=== PATIENT | female | born 1970 | race African-American/Black ===

== ENCOUNTER 2025-05-24 12:03 | Inpatient (IN) | payer MEDICARE, MEDICAID ==
[~2025-05-24] VITALS: Ht 157.5 cm; Wt 85.0 kg
--- NOTE | 2025-05-24 12:24 | ECG ---
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
--- NOTE | 2025-05-24 13:14 | ED.PDOC ---
History of Present Illness HPI Comments This is a 54 year-old female, with a Hx of Sciatica, who presents to the ED with a chief complaint of general weakness with an inability to ambulate and cough as of x2 days ago. She states she fell several days ago by a mechanical fall. Patient presents with a large abrasion to her palm from previous fall. Patient states after the fall, she has had a difficulty with ambulation, and needs her to assist. Patient additionally reports a difficulty to eat or drink. Patient reports additional symptoms of cough, but otherwise denies further symptoms of head trauma, back pain, neck pain, N/V/D, fever, or chills. 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 History Family History Family History: Reviewed,noncontributory to illness, No family hx of Cancer, No family hx of DM, No family hx of Heart courtney, No family hx of HTN, No family hx ofKidney courtney, No family hx of Liver courtney, No family hx of Lung courtney, No family hx of Stroke Social History Smoker: Unknown Alcohol: Unknown Drugs: Unknown Lives In: Home Constitutional: reports: weakness, others (difficulty walking ); denies: chills, diaphoresis, fatigue, fever, malaise, sweats EENTM: denies: blurred vision, double vision, ear bleeding, ear discharge, ear drainage, ear pain, ear ringing, eye pain, eye redness, hearing loss, mouth pain, mouth swelling, nasal discharge, nose bleeding, nose congestion, nose pain, photophobia, tearing, throat pain, throat swelling, voice changes, others Respiratory: reports: cough; denies: hemoptysis, orthopnea, SOB at rest, shortness of breath, SOB with excertion, stridor, wheezing, others Cardiovascular: denies: chest pain, dizzy spells, diaphoresis, Dyspnea on exertion, edema, irregular heart beat, left arm pain, lightheadedness, palpitations, PND, syncope, others Gastrointestinal: denies: abdomen distended, abdominal pain, blood streaked bowels, constipated, diarrhea, dysphagia, difficulty swallowing, hematemesis, melena, nausea, poor appetite, poor fluid intake, rectal bleeding, rectal pain, vomiting, others Genitourinary: denies: abnormal vagina bleeding, burning, dyspareunia, dysuria, flank pain, frequency, hematuria, incontinence, pain, , vagina di scharge, urgency, others Neurological: denies: dizziness, fainting, headache, left sided numbness, left sided weakness, numbness, paresthesia, pre-existing deficit, right sided numbness, right sided weakness, seizure, speech problems, tingling, tremors, weakness, others Musculoskeletal: denies: back pain, gout, joint pain, joint swelling, muscle pain, muscle stiffness, neck pain, others Integumetry: denies: bruises, change in color, change in hair/nails, dryness, laceration, lesions, lumps, rash, wounds, others Allergic/Immunocompromised: denies: Difficulty Healing, Frequent Infections, Hives, Itching, others Hematologic/Lymphatic: denies: anemia, blood clots, easy bleeding, easy bruising, swollen glands, others Endocrine: denies: excessive hunger, excessive sweating, excessive thirst, excessive urination, flushing, intolerance to cold, intolerance to heat, unexplained weight gain, unexplained weight loss, others Psychiatric: denies: anxiety, bipolar disorder, depression, hopeless, panic disorder, schizophrenia, sleepless, suicidal, others All Other Systems: Reviewed and Negative Physical Exam General Appearance: No Apparent Distress, Normal, Other (Appears weak) HEENT: Normal ENT Inspection, Pharynx Normal, TMs Normal Neck: Full Range of Motion, Non-Tender, Normal, Normal Inspection Respiratory: Chest Non-Tender, Lungs Clear, No Accessory Muscle Use, No Respiratory Distress, Normal Breath Sounds Cardiovascular: No Edema, No JVD, No Murmur, No Gallop, Normal Peripheral Pulses, Regular Rate/Rhythm Breast Exam: Deferred Gastrointestinal: No Organomegaly, Non Tender, No Pulsatile Mass, Normal Bowel Sounds, Soft Genitalia: Deferred Pelvic: Deferred Rectal: Deferred Extremities: No calf tenderness, Normal capillary refill, Normal inspection, Normal range of motion, Non-tender, No pedal edema Musculoskeletal : Apperance: Normal Neurologic: Alert, top frame fitter II-XII nml as Tested, No Motor Deficits, Normal Affect, Normal Mood, No Sensory Deficits Cerebellar Function: Normal Reflexes: Normal Skin: Dry, Normal Color, Warm Lymphatic: No Adenopathy Was a procedure done? Was a procedure done?: No EKG EKG : Comments Rate of 82 sinus rhythm T-wave flattening in lead 3 V2 V3 V4 V5 V6 Differential Dx Considerations may include: UTI pneumonia, intracranial hemorrhage, stroke, dehydration, electrolyte abnormality X-Ray, Labs, Meds, VS Vital Signs Date Time Temp Pulse Resp B/P (MAP) Pulse Ox O2 Delivery O2 Flow Rate FiO2 05/24/25 16:41 98.3 73 18 117/75 (89) 100 98.3 05/24/25 16:31 71 7 100 Room Air* 0 21 05/24/25 14:00 98.0 78 18 86/54 (65) 97 98.0 05/24/25 12:15 82 05/24/25 12:06 98.1 92 18 137/92 96 98.1 Lab Test 05/24/25 14:47 05/24/25 13:47 Range/Units Troponin I High Sensitivity < 3 L 3 L </=34 ng/L White Blood Count 8.8 4.4-10.8 10^3/uL Red Blood Count 3.97 L 4.0-5.20 10^6/uL Hemoglobin 11.2 L 12.2-16.2 g/dL Hematocrit 33.6 L 36.0-46.0 % Mean Corpuscular Volume 84.6 80.0-100.0 fL Mean Corpuscular Hemoglobin 28.2 28.0-32.0 pg Mean Corpuscular Hemoglobin Concent 33.3 32.0-36.0 g/dL Red Cell Distribution Width 18.9 H 11.8-14.3 % Platelet Count 231 140-450 10^3/uL Mean Platelet Volume 7.5 6.9-10.8 fL Neutrophils (%) (Auto) 80.8 H 37.0-80.0 % Lymphocytes (%) (Auto) 11.4 10.0-50.0 % Monocytes (%) (Auto) 5.2 0.0-12.0 % Eosinophils (%) (Auto) 1.8 0.0-7.0 % Basophils (%) (Auto) 0.8 0.0-2.0 % Neutrophils # (Auto) 7.1 1.6-8.6 10 ^3/uL Lymphocytes # (Auto) 1.0 0.4-5.4 10 ^3/uL Monocytes # (Auto) 0.5 0-1.3 10 ^3/uL Eosinophils # (Auto) 0.2 0-0.8 10 ^3/uL Basophils # (Auto) 0.1 0-0.2 10 ^3/uL Nucleated Red Blood Cells 0.0 % Sodium Level 144 136-145 mmol/L Potassium Level 3.9 3.5-5.1 mmol/L Chloride Level 109 H 98-107 mmol/L Carbon Dioxide Level 26 20-31 mmol/L Anion Gap 9 5-15 Blood Urea Nitrogen 8 L 9-23 mg/dL Creatinine 0.79 0.550-1.02 mg/dL Glomerular Filtration Rate Calc 88 >90 mL/min BUN/Creatinine Ratio 10.1 10.0-20.0 Serum Glucose 88 74-106 mg/dL Calcium Level 9.2 8.7-10.4 mg/dL Total Bilirubin 0.5 0.2-1.0 mg/dL Aspartate Amino Transferase (AST) 20 13-40 U/L Alanine Aminotransferase (ALT) 14 7-40 U/L Alkaline Phosphatase 91 46-116 U/L B-Type Natriuretic Peptide 51.80 0-100 pg/mL Total Protein 6.4 5.7-8.2 g/dL Albumin 4.1 3.2-4.8 g/dL Current Medications Medications (Trade) Dose Ordered Sig/Saroj Route Start Time Stop Time Status Last Admin Sodium Chloride 500 ml @ 500 mls/hr Q1H ONCE IV 05/24/25 14:45 05/24/25 15:44 DC 05/24/25 15:[address] [address] Ph: [phone] DIAGNOSTIC IMAGING Diagnostic Imaging Report : [id number] Signed PATIENT: ONEIL SIMEON ACCT: [id number] UNIT: [id number] : 1970 LOC: ER ROOM / BED: / AGE / SEX: 54 / F ADM STATUS: REG ER SERVICE 1311 ORDERING PHYSICIAN: BERNABE ZAMBRANO MD PROCEDURE(s): CXR2 - CHEST TWO VIEWS ROUTINE REASON: Rule out pneumonia ORDER NUMBER(s): [id number], ACCESSION NUMBER(s): [id number] CHEST RADIOGRAPH Indication: Rule out pneumonia Technique: Frontal and lateral view of the chest was obtained Comparison: XR RIBS RT on DOS: 12/04/23, XY R RIB XRAY on DOS: 03/16/23 FINDINGS: Lines and Tubes: None Lungs: Mildly increased interstitial changes both lung hussein No consolidation Pleura: No effusion. No pneumothorax. Cardiomediastinal contours: Mild cardiomegaly Bones: Unremarkable IMPRESSION: 1. Mild cardiomegaly with mildly [place] [address] Ph: [phone] DIAGNOSTIC IMAGING Diagnostic Imaging Report : [id number] Signed PATIENT: ONEIL SIMEON ACCT: [id number] UNIT: [id number] : 1970 LOC: ER ROOM / BED: / AGE / SEX: 54 / F ADM STATUS: REG ER SERVICE 1314 ORDERING PHYSICIAN: BERNABE ZAMBRANO MD PROCEDURE(s): HWOCT - HEAD WITHOUT CONTRAST REASON: Rule out intracranial hemorrhage ORDER NUMBER(s): [id number], ACCESSION NUMBER(s): [id number] EXAM: CT HEAD WITHOUT CONTRAST INDICATION: Rule out intracranial hemorrhage TECHNIQUE: CT images of the head were obtained without administration of IV contrast. CT scans at this facility use dose modulation, iterative reconstruction, and/or weight based dosing when appropriate to reduce radiation dose to as low as reasonably achievable. COMPARISON: None FINDINGS: PARENCHYMA: No acute hemorrhage. There is no mass effect, midline shift, or herniation. There is preservation of the kline white differentiation. VENTRICLES: No hydrocephalus. EXTRA-AXIAL SPACES: No extra-axial fluid collections. OTHER: The bony structures are intact. Visualized portions of the paranasal sinuses and mastoid air cells are clear. IMPRESSION: 1. No CT evidence of an acute intracranial abnormality. 54-year-old female presents here with generalized weakness that she has had x2 days. She states she fell several days ago by a mechanical fall. She does have a large abrasion to her palm from previous fall. But there was no laceration does not require stitching. She states however the last few days she has been extremely weak difficulty with ambulation. She states she has not been able to eat and drink much. Patient reports positive cough. Denies any fever or chills. While in the ER nursing staff approached me multiple times stating patient's blood pressure is low at 88 systolic. At this time I have started IV fluids which has helped her blood pressure. CBC CMP, troponin chest x-ray has been ordered by myself which are all normal. CT scan of the brain has been done given her fall which is also unremarkable. At this time however given her low blood pressures I am concerned and hospitalist team has been contacted. There was no source of infection at this point. I am waiting on urine. However she denies any dysuria. Images Reviewed?: Images reviewed and evaluated by me Time of 1ST Reevaluation: 16:47 Reevaluation 1ST: Unchanged Patient Education/Counseling: Diagnosis, Treatment Family Education/Counseling: No Family Present SEPSIS Sepsis Screen Date sepsis recognized/suspect: May 24, 2025 Time Sepsis recognized/suspect: 1212 Recent Procedure: No On Antibiotic Therapy: No Respiratory Rate >20: No Heart Rate >90: No Temp<36 C (96.8 F) or >38.3 C: No SBP <90 or MAP <65 mmHG: No New Acute Mental Status Change: No Is the patient on CPAP, BIPAP,: No Physician Orders Urinalysis (05/24/25 13:11) Chest Two Views Routine (05/24/25 13:11) Head Without Contrast (05/24/25 13:14) Ls Spine Wo Contrast (05/24/25 16:40) Cervical Without Contrast (05/24/25 16:40) Vital Signs Date Time Temp Pulse Resp B/P (MAP) Pulse Ox O2 Delivery O2 Flow Rate FiO2 05/24/25 16:41 98.3 73 18 117/75 (89) 100 98.3 05/24/25 16:31 71 7 100 Room Air* 0 21 05/24/25 14:00 98.0 78 18 86/54 (65) 97 98.0 05/24/25 12:15 82 05/24/25 12:06 98.1 92 18 137/92 96 98.1 Laboratory Tests Test 05/24/25 13:47 White Blood Count 8.8 10^3/uL (4.4-10.8) Medications Medications Dose Ordered Sig/Saroj Route Start Time Stop Time Status Last Admin Dose Admin Sodium Chloride 500 ml @ 500 mls/hr Q1H ONCE IV 05/24/25 14:45 05/24/25 15:44 DC 05/24/25 15:15 Departure 1 Departure Time of Disposition: 16:03 Impression: Primary Impression: Generalized weakness Additional Impression: Low blood pressure Qualified Codes: I95.9 - Hypotension, unspecified Disposition: ADMITTED INPATIENT Condition: Fair Critical Care Note Critical Care Time?: No Stability Stability form required: No Heart Score Heart Score: Heart Score Response (Comments) Value History Slightly Suspicious 0 EKG N/A 0 Age 45-64 1 Risk Factors No known risk factors 0 Troponin N/A 0 Total 1 I personally scribed for BERNABE ZAMBRANO MD ([facility] on 05/24/25 at 14:28. Electronically submitted by Keira Alvarez ([employer]). I personally scribed for BERNABE ZAMBRANO MD ([facility]) on 05/24/25 at 14:29. Electronically submitted by Keira Alvarez ([employer]). I personally scribed for BERNABE ZAMBRANO MD ([email or web address]) on 05/24/25 at 16:03. Electronically submitted by Keira Alvarez ([employer]). I personally scribed for BERNABE ZAMBRANO MD ([email or web address]) on 05/24/25 at 16:15. Electronically submitted by Keira Alvarez ([employer]). BERNABE ZAMBRANO MD May 24, 2025 13:14
--- NOTE | 2025-05-24 13:48 | DVH ---
CHEST RADIOGRAPH Indication: Rule out pneumonia Technique: Frontal and lateral view of the chest was obtained Comparison: XR RIBS RT on DOS: 12/04/23, XY R RIB XRAY on DOS: 03/16/23 FINDINGS: Lines and Tubes: None Lungs: Mildly increased interstitial changes both lung hussein No consolidation Pleura: No effusion. No pneumothorax. Cardiomediastinal contours: Mild cardiomegaly Bones: Unremarkable IMPRESSION: 1. Mild cardiomegaly with mildly
[2025-05-24 14:01] LABS: Hematocrit 33.6 % (36.0-46.0); Hemoglobin 11.2 g/dL (12.2-16.2); Mean Corpuscular Hemoglobin 28.2 pg (28.0-32.0); Mean Corpuscular Volume 84.6 fL (80.0-100.0); Nucleated Red Blood Cells % 0.0 %
--- NOTE | 2025-05-24 14:06 | DVH ---
EXAM: CT HEAD WITHOUT CONTRAST INDICATION: Rule out intracranial hemorrhage TECHNIQUE: CT images of the head were obtained without administration of IV contrast. CT scans at [facility] use dose modulation, iterative reconstruction, and/or weight based dosing when appropriate to reduce radiation dose to as low as reasonably achievable. COMPARISON: None FINDINGS: PARENCHYMA: No acute hemorrhage. There is no mass effect, midline shift, or herniation. There is pres ervation of the kline white differentiation. VENTRICLES: No hydrocephalus. EXTRA-AXIAL SPACES: No extra-axial fluid collections. OTHER: The bony structures are intact. Visualized portions of the paranasal sinuses and mastoid air cells are clear. IMPRESSION: 1. No CT evidence of an acute intracranial abnormality.
[2025-05-24 14:18] LABS: Alanine Aminotransferase 14 U/L (7-40); Albumin 4.1 g/dL (3.2-4.8); Alkaline Phosphatase 91 U/L (46-116); Anion Gap 9 (5-15); BUN/Creatinine Ratio 10.1 (10.0-20.0); Bilirubin, Total 0.5 mg/dL (0.2-1.0); Blood Urea Nitrogen 8 mg/dL (9-23); Calcium 9.2 mg/dL (8.7-10.4); Carbon Dioxide 26 mmol/L (20-31); Chloride 109 mmol/L (98-107); Glucose 88 mg/dL (74-106); Potassium 3.9 mmol/L (3.5-5.1); Sodium 144 mmol/L (136-145); Total Protein 6.4 g/dL (5.7-8.2)
[2025-05-24] MEDS: SODIUM CHLORIDE 0.9% 500 ML IV ONE (15:15)
[2025-05-24 16:31] VITALS: PULSE 71; RESP 7; O2SAT 100
[2025-05-24] MEDS ORDERED: ONDANSETRON HCL 4 MG/2 ML VIAL IV PRN (16:45)
--- NOTE | 2025-05-24 16:45 | DVHHP2 ---
History of Present Illness Reason for Visit: Generalized weakness status post mechanical fall History of Present Illness Yoly Mcrae is a 54-year-old female with past medical history of CHF, ex la p for endometriosis, cholecystectomy, hysterectomy, and oophorectomy who presents to the ED with generalized weakness status post fall 4 days ago. Patient reports that she was walking out to her front yd and was over a"lip" when she tripped and fell landed on both her knees and her right hand. Upon examination her right hand has a healed abrasion as well as healing abrasions on her knees. Patient reports now that when she has to stand up or walk she needs assistance with someone holding her up as a cane that she had used before is not sufficient. Patient denies any head strike or loss of consciousness. Patient denies any recent travels, recent sick contacts, recent ingestion of spoiled food, chest pain, shortness of breath, fever, chills, lightheadedness, weakness, dizziness, abdominal pain, nausea vomiting, diarrhea, or urinary symptoms. Cardiovascular: CHF Past Surgical History: Cholecystectomy, Hysterectomy, Other (Ex lap for endometriosis and oophorectomy) Family History: Other (Mom with psych disorder. Dad with psych disorder and type 1 diabetes.) Smoke: No ALCOHOL: none Drugs: None Lives: with Family Domestic Violence: Neg Review of Systems Constitutional: Yes: Weakness Allergies: Coded Allergies: NO KNOWN ALLERGIES (Unverified , 05/24/25) Exam Vital Signs Vital Signs Date Time Temp Pulse Resp B/P (MAP) Pulse Ox O2 Delivery O2 Flow Rate FiO2 05/24/25 14:00 98.0 78 18 86/54 (65) 97 98.0 General Appearance: Alert, Oriented X3, Cooperative, No acute distress HEENT: Atraumatic, PERRLA, Mucous membr. moist/pink Respiratory: Normal air movement Cardiovascular: Regular rate, Normal S1, Normal S2 Abdominal: Normal bowel sounds, Soft Extremities: Normal pulses Neuro: Normal speech, Normal tone, Sensation intact Psych/Mental Status: Mental status NL, Mood NL Labs/Xrays Labs Test 05/24/25 14:47 05/24/25 13:47 Range/Units Troponin I High Sensitivity < 3 L </=34 ng/L White Blood Count 8.8 4.4-10.8 10^3/uL Red Blood Count 3.97 L 4.0-5.20 10^6/uL Hemoglobin 11.2 L 12.2-16.2 g/dL Hematocrit 33.6 L 36.0-46.0 % Mean Corpuscular Volume 84.6 80.0-100.0 fL Mean Corpuscular Hemoglobin 28.2 28.0-32.0 pg Mean Corpuscular Hemoglobin Concent 33.3 32.0-36.0 g/dL Red Cell Distribution Width 18.9 H 11.8-14.3 % Platelet Count 231 140-450 10^3/uL Mean Platelet Volume 7.5 6.9-10.8 fL Neutrophils (%) (Auto) 80.8 H 37.0-80.0 % Lymphocytes (%) (Auto) 11.4 10.0-50.0 % Monocytes (%) (Auto) 5.2 0.0-12.0 % Eosinophils (%) (Auto) 1.8 0.0-7.0 % Basophils (%) (Auto) 0.8 0.0-2.0 % Neutrophils # (Auto) 7.1 1.6-8.6 10 ^3/uL Lymphocytes # (Auto) 1.0 0.4-5.4 10 ^3/uL Monocytes # (Auto) 0.5 0-1.3 10 ^3/uL Eosinophils # (Auto) 0.2 0-0.8 10 ^3/uL Basophils # (Auto) 0.1 0-0.2 10 ^3/uL Nucleated Red Blood Cells 0.0 % Sodium Level 144 136-145 mmol/L Potassium Level 3.9 3.5-5.1 mmol/L Chloride Level 109 H 98-107 mmol/L Carbon Dioxide Level 26 20-31 mmol/L Anion Gap 9 5-15 Blood Urea Nitrogen 8 L 9-23 mg/dL Creatinine 0.79 0.550-1.02 mg/dL Glomerular Filtration Rate Calc 88 >90 mL/min BUN/Creatinine Ratio 10.1 10.0-20.0 Serum Glucose 88 74-106 mg/dL Calcium Level 9.2 8.7-10.4 mg/dL Total Bilirubin 0.5 0.2-1.0 mg/dL Aspartate Amino Transferase (AST) 20 13-40 U/L Alanine Aminotransferase (ALT) 14 7-40 U/L Alkaline Phosphatase 91 46-116 U/L B-Type Natriuretic Peptide 51.80 0-100 pg/mL Total Protein 6.4 5.7-8.2 g/dL Albumin 4.1 3.2-4.8 g/dL EXAM: CT HEAD WITHOUT CONTRAST INDICATION: Rule out intracranial hemorrhage TECHNIQUE: CT images of the head were obtained without administration of IV contrast. CT scans at this facility use dose modulation, iterative reconstruction, and/or weight based dosing when appropriate to reduce radiation dose to as low as reasonably achievable. COMPARISON: None FINDINGS: PARENCHYMA: No acute hemorrhage. There is no mass effect, midline shift, or herniation. There is preservation of the kline white differentiation. VENTRICLES: No hydrocephalus. EXTRA-AXIAL SPACES: No extra-axial fluid collections. OTHER: The bony structures are intact. Visualized portions of the paranasal sinuses and mastoid air cells are clear. IMPRESSION: 1. No CT evidence of an acute intracranial abnormality. CHEST RADIOGRAPH Indication: Rule out pneumonia Technique: Frontal and lateral view of the chest was obtained Comparison: XR RIBS RT on DOS: 12/04/23, XY R RIB XRAY on DOS: 03/16/23 FINDINGS: Lines and Tubes: None Lungs: Mildly increased interstitial changes both lung hussein No consolidation Pleura: No effusion. No pneumothorax. Cardiomediastinal contours: Mild cardiomegaly Bones: Unremarkable IMPRESSION: 1. Mild cardiomegaly with mildly SEPSIS Sepsis Screen Date sepsis recognized/suspect: May 24, 2025 Time Sepsis recognized/suspect: 2 Recent Procedure: No On Antibiotic Therapy: No Respiratory Rate >20: No Heart Rate >90: No Temp<36 C (96.8 F) or >38.3 C: No SBP <90 or MAP <65 mmHG: No New Acute Mental Status Change: No Is the patient on CPAP, BIPAP,: No Physician Orders Urinalysis (05/24/25 13:11) Chest Two Views Routine (05/24/25 13:11) Head Without Contrast (05/24/25 13:14) Ls Spine Wo Contrast (05/24/25 16:40) Cervical Without Contrast (05/24/25 16:40) Vital Signs Date Time Temp Pulse Resp B/P (MAP) Pulse Ox O2 Delivery O2 Flow Rate FiO2 05/24/25 14:00 98.0 78 18 86/54 (65) 97 98.0 05/24/25 12:15 82 05/24/25 12:06 98.1 92 18 137/92 96 98.1 Laboratory Tests Test 05/24/25 13:47 White Blood Count 8.8 10^3/uL (4.4-10.8) Medications Medications Dose Ordered Sig/Saroj Route Start Time Stop Time Status Last Admin Dose Admin Sodium Chloride 500 ml @ 500 mls/hr Q1H ONCE IV 05/24/25 14:45 05/24/25 15:44 DC 05/24/25 15:15 500 MLS/HR Assessment/Plan Assessment/Plan Assessment Generalized weakness status post mechanical fall Cardiomegaly Normocytic anemia History of CHF History of ex lap for endometriosis History of cholecystectomy History of hysterectomy History of oophorectomy Plan Admit to med surge Antiemetics Pain management CT head noted NS 500 cc given ED Strict I&Os Daily weights CT cervical spine ordered CT lumbar spine ordered Physical therapy Diet Home medications reconciled DVT prophylaxis-SCDs PUD prophylaxis-not indicated patient has a history of GERD or GI bleed Discussed plan of care with patient, patient's spouse, and nurse Wound consult for abrasions [id number] Preventive counseling healthy eating habits, physical activity, and regular checkups Plan discussed with: Patient, Spouse My Orders Orders - MAXINE SHIPLEY Procedure Category Date Status Time Ls Spine Wo Contrast CT 05/24/25 Transmitted 16:[address] 05/24/25 Transmitted Contrast 16:40 Date of Service: May 24, 2025 Billing Provider: MAXINE SHIPLEY Common Visit Codes: [id number] INP/OBS CARE (HIGH) Secondary Visit Codes: [id number] COUNSELING IND MAXINE SHIPLEY May 24, 2025 16:45
--- NOTE | 2025-05-24 18:00 | DVH ---
EXAM: CT LS SPINE WO CONTRAST INDICATION: fall with pain TECHNIQUE: Axial images of the lumbar spine have been obtained along with coronal and sagittal reform atted images. CT scans at this facility use dose modulation, iterative reconstruction, and/or weight based dosing when appropriate to reduce radiation dose to as low as reasonably achievable. COMPARISON: None FINDINGS: ANATOMY: Five lumbar-type vertebral bodies are present. The most inferior well-formed disc space will be referred to as L5-S1 for purposes of numbering in this report. VERTEBRAL BODIES: The vertebral bodies are normal in height and alignment. SPINAL CANAL: No spinal canal narrowing. INTERVERTEBRAL DISCS: No significant posterior osteophyte complex FACETS: Multilevel mild to moderate facet arthropathy. OTHER: None. IMPRESSION: 1. No CT evidence of an acute fracture
[2025-05-24 18:27] LABS: Urine Protein, UAD Negative (Negative)
--- NOTE | 2025-05-24 18:30 | DVH ---
CLINICAL HISTORY: pain s/p fall TECHNIQUE: CT exam of the cervical spine was performed without intravenous contrast. This exam was pe rformed according to our departmental dose optimization program. Up-to-date CT equipment and radiatio n dose reduction techniques are utilized as appropriate. 22.85 CTDI: 22.85 DLP: 616.81 WID: COMPARISON: None FINDINGS: There is normal cervical alignment. The vertebral body heights are maintained. No acute cervical frac ture or subluxation is identified. No significant central or neural foraminal narrowing is identified . The paraspinous soft tissues are unremarkable. Linear opacities in the lung apices. Interlobular s eptal thickening in the lung apex. Calcified plaque projects over the aortic arch. Partially imaged m ild mediastinal lymphadenopathy. Spinal stimulator lead courses into the cervical spine from T1-T2 coursing cephalad in the posterior spinal canal terminating at the level of C3. IMPRESSION: 1. No acute fracture or traumatic malalignment. 2. Interstitial pulmonary edema. 3. There appears to be mildly enlarged mediastinal lymph nodes, partially imaged. This is not optimal ly evaluated on this study and could be further evaluated with nonemergent/ outpatient CT chest if cl inically indicated.
[2025-05-24 20:57] VITALS: PULSE 71; RESP 18; O2SAT 97
[2025-05-24] MEDS: ACETAMINOPHEN 325 MG TAB PO PRN (22:28)
[2025-05-24 22:29] VITALS: BP 137/87; PULSE 75; RESP 18; TEMP 97.8; O2SAT 100
[2025-05-24] MEDS ORDERED: MIRT1TAB39 PO (22:42)
[2025-05-24] MEDS ORDERED: LEVO1CAP PO (22:42)
[2025-05-24] MEDS ORDERED: TIOT1AER INH (22:42)
[2025-05-24] MEDS ORDERED: FREM225I2 SC (22:42)
[2025-05-24] MEDS ORDERED: PANT40T PO (22:42)
[2025-05-24] MEDS ORDERED: MET25T PO (22:42)
[2025-05-24] MEDS ORDERED: MORP30TA PO (22:42)
[2025-05-24] MEDS ORDERED: PREG75CA90 PO (22:42)
[2025-05-24] MEDS ORDERED: ATOR20TA50 PO (22:42)
[2025-05-24] MEDS ORDERED: MORP30TA5 PO (22:42)
[2025-05-24] MEDS ORDERED: LAMO200T34 PO (22:42)
[2025-05-24] MEDS ORDERED: FURO40TA4 PO (22:42)
[2025-05-25 05:00] VITALS: BP 111/78; PULSE 68; RESP 18; TEMP 97.7; O2SAT 99
[2025-05-25 06:40] LABS: Hematocrit 32.0 % (36.0-46.0); Hemoglobin 10.5 g/dL (12.2-16.2); Mean Corpuscular Hemoglobin 28.1 pg (28.0-32.0); Mean Corpuscular Volume 85.4 fL (80.0-100.0); Nucleated Red Blood Cells % 0.1 %
[2025-05-25 06:59] LABS: Alanine Aminotransferase 10 U/L (7-40); Albumin 3.6 g/dL (3.2-4.8); Alkaline Phosphatase 80 U/L (46-116); Anion Gap 11 (5-15); BUN/Creatinine Ratio 10.8 (10.0-20.0); Bilirubin, Total 0.3 mg/dL (0.2-1.0); Blood Urea Nitrogen 7 mg/dL (9-23); Calcium 8.6 mg/dL (8.7-10.4); Carbon Dioxide 24 mmol/L (20-31); Chloride 110 mmol/L (98-107); Glucose 81 mg/dL (74-106); Potassium 3.4 mmol/L (3.5-5.1); Sodium 145 mmol/L (136-145); Total Protein 5.6 g/dL (5.7-8.2)
[2025-05-25 08:38] VITALS: BP 155/122; PULSE 72; RESP 12; TEMP 97.8; O2SAT 99
[2025-05-25] MEDS: POTASSIUM EFFERVESENT TAB 25 MEQ PO ONE (12:46)
[2025-05-25 12:58] VITALS: BP 132/91; PULSE 77; RESP 16; TEMP 97.9; O2SAT 99
--- NOTE | 2025-05-25 12:59 | DVHPN2 ---
Subjective Feels the same Reviewed: Care Plan, H&P, Labs, Medications, Previous Orders, Radiology Changes from previous H/P or p: No Changes Objective Vitals Vital Signs Date Time Temp Pulse Resp B/P (MAP) Pulse Ox O2 Delivery O2 Flow Rate FiO2 05/25/25 08:38 97.8 72 12 155/122 (133) 99 97.8 05/24/25 22:29 Nasal Cannula* 2 28 Intake/Output Intake and Output 05/25/25 07:00 Intake Total 600 ml Balance 600 ml Intake Oral 100 ml IV Total 500 ml General Appearance: Alert, Oriented X3, Cooperative, No acute distress HEENT: Atraumatic Lungs: Other (Few crackles more on the right than the left) Cardiovascular: Regular rate Abdomen: Normal bowel sounds, Soft, No tenderness Extremities: Other (Trace edema bilateral lower extremity) Medications Current Medications Medications Dose Ordered Sig/Saroj Route Start Time Stop Time Status Last Admin Dose Admin Ondansetron HCl 4 mg Q4HP PRN IV 05/24/25 16:45 Acetaminophen 650 mg Q6HP PRN PO 05/24/25 16:45 05/24/25 22:28 650 MG Ceftriaxone Sodium 50 ml @ 100 mls/hr DAILY@09 IV 05/26/25 09:00 Laboratory Results Laboratory Tests 05/25/25 06:11 Chemistry Test 05/24/25 13:47 05/25/25 06:11 Albumin 4.1 g/dL (3.2-4.8) 3.6 g/dL (3.2-4.8) Calcium Level 9.2 mg/dL (8.7-10.4) 8.6 mg/dL (8.7-10.4) L Total Protein 6.4 g/dL (5.7-8.2) 5.6 g/dL (5.7-8.2) L Cardiac Markers Test 05/24/25 13:47 B-Type Natriuretic Peptide 51.80 pg/mL (0-100) LFT Test 05/24/25 13:47 05/25/25 06:11 Alanine Aminotransferase (ALT) 14 U/L (7-40) 10 U/L (7-40) Alkaline Phosphatase 91 U/L (46-116) 80 U/L (46-116) Aspartate Amino Transferase (AST) 20 U/L (13-40) 17 U/L (13-40) Total Bilirubin 0.5 mg/dL (0.2-1.0) 0.3 mg/dL (0.2-1.0) Urinalysis Test 05/24/25 17:50 Urine Color Light-yellow (Yellow) Urine Clarity Clear (Clear) Urine pH 6.0 (5.0-9.0) Urine Specific [place] 1.013 (1.001-1.035) Urine Protein Negative (Negative) Urine Ketones Negative (Negative) Urine Blood Negative /uL (Negative) Urine Nitrite Negative (Negative) Urine Bilirubin Negative (Negative) Urine Urobilinogen Normal mg/dL (Negative) Urine Leukocyte Esterase 1+ /uL (Negative) Urine RBC 2 /hpf (0 - 4) Urine Microscopic WBC 7 /HPF (0-5) H Urine Squamous Epithelial Cells Few /hpf (<5) Urine Bacteria None seen /hpf (None Seen) Urine Hyaline Casts Few /lpf (0 - 2) Urine Mucus Few (None Seen) Urine Glucose Normal mg/dL (Normal) Assessment/Plan Assessment/Plan UTI/cystitis Generalized weakness status post fall Right hand cellulitis Questionable heart failure/pulmonary edema versus pneumonia Obesity Mediastinal lymphadenopathy Plan: Check CPK. Antibiotics. Chest CT. Further plan per order Plan discussed with: Patient My Orders Orders - BRTI ASHTON MD Procedure Category Date Status Time Creatine Kinase LAB 05/25/25 In Process 11:05 Ceftriaxone 1gm/50ml PHA 05/26/25 In Process (Rocephin) 09:00 Urine Bacterial CHE 05/25/25 Logged Culture 11:05 Clindamycin 300mg Iv PHA 05/25/25 Logged (Cleocin Iv) 14:00 R Hand 3 View Xray XY 05/25/25 Logged 12:51 Erythrocyte LAB 05/25/25 Logged Sedimentation Rate 12:51 Date of Service: May 25, 2025 Billing Provider: BRIT ASHTON MD Common Visit Codes: [id number] INP/OBS CARE(HIGH) BRIT ASHTON MD May 25, 2025 12:59
[2025-05-25] MEDS: CLINDAMYCIN 300MG IV 50 ML IV SCH (14:50)
[2025-05-25] MEDS ORDERED: IOHEXOL 300 MG/ML 100ML BOTTLE IJ ONE (16:36)
[2025-05-25 17:00] VITALS: BP 125/84; PULSE 83; RESP 12; TEMP 97.9; O2SAT 98
--- NOTE | 2025-05-25 17:46 | DVH ---
CLINICAL INDICATION: trauma TECHNIQUE: 3 radiographic views of the right hand were obtained. Comparison: None FINDINGS/IMPRESSION: Bony alignment is normal No fracture or dislocation. No radiopaque foreign bodies.
--- NOTE | 2025-05-25 17:50 | DVH ---
EXAM: CT CHEST WITH CONTRAST HISTORY: mediastinal lynphadenopathy TECHNIQUE: CT angiogram was performed. CT scans at this facility use dose modulation, iterative recon struction, and/or weight based dosing when appropriate to reduce radiation dose to as low as reasonab ly achievable. Coronal and sagittal reformations and maximum intensity projection images were created from the transaxial source data by the microbiology technologist and workstation, as well as 3-D volume render ed images with MIPs. COMPARISON: None FINDINGS: [LOWER NECK]: Unremarkable [LYMPH NODES/MEDIASTINUM]: Subcentimeter right lower paratracheal and bilateral hilar lymph nodes. No lymphadenopathy measuring greater than 1 cm. [CARDIOVASCULAR]: Normal cardiac size. No pericardial effusion. No aneurysmal dilatation of the great vessels. Coronary artery calcifications. [PULMONARY ARTERIES]: No pulmonary arterial filling defect. Normal caliber of the main pulmonary padmini ry. No evidence of elevated right heart pressures. [UPPER ABDOMEN]: Small possible sliding hiatal hernia with postsurgical changes to the stomach and th e majority of the stomach is decompressed. Correlate for reflux and underlying esophagitis/gastritis. [MUSCULOSKELETAL]: No acute fracture or aggressive focal osseous lesion. Multilevel degenerative reid ge of the visualized spine. prior healed sternal central body fracture, appearance of malunited appea alfonso. [CHEST WALL]: Unremarkable. [LUNG PARENCHYMA/PLEURAL SPACE]: Tree-in-bud configuration with trace patchy areas of ground-glass in bilateral lower lobes. Correlate for infectious bronchiolitis and/or multifocal pneumonia. No pleur al effusion or pneumothorax. IMPRESSION: 1. No CTA evidence of an acute pulmonary embolism. 2. Tree-in-bud configuration with trace patchy areas of ground-glass in bilateral lower lobes. 3. Correlate for infectious bronchiolitis and/or multifocal pneumonia. Subcentimeter right lower para tracheal and right
[2025-05-26 01:00] VITALS: BP 152/101; PULSE 77; RESP 18; TEMP 98.1; O2SAT 100
[2025-05-26 05:00] VITALS: BP 165/112; PULSE 81; RESP 17; TEMP 97.3; O2SAT 99
[2025-05-26 08:00] VITALS: PULSE 74; RESP 19
[2025-05-26 09:00] VITALS: BP 180/103; PULSE 85; RESP 18; TEMP 97.4; O2SAT 96
[2025-05-26] MEDS ORDERED: AZITTAB PO (11:53)
--- NOTE | 2025-05-26 12:00 | DVHDS2 ---
Discharge Summary Date of Admission May 24, 2025 at 16:45 Date of Discharge: May 26, 2025 Admitting Diagnosis Generalized weakness secondary to mechanical fall Labs/Diagnostic Data: Laboratory Results Test 05/25/25 15:03 05/25/25 06:11 05/24/25 17:50 05/24/25 14:47 Erythrocyte Sedimentation Rate 22 mm/hr (0-20) White Blood Count 6.0 10^3/uL (4.4-10.8) Red Blood Count 3.75 10^6/uL (4.0-5.20) Hemoglobin 10.5 g/dL (12.2-16.2) Hematocrit 32.0 % (36.0-46.0) Mean Corpuscular Volume 85.4 fL (80.0-100.0) Mean Corpuscular Hemoglobin 28.1 pg (28.0-32.0) Mean Corpuscular Hemoglobin Concent 32.9 g/dL (32.0-36.0) Red Cell Distribution Width 19.4 % (11.8-14.3) Platelet Count 194 10^3/uL (140-450) Mean Platelet Volume 7.7 fL (6.9-10.8) Neutrophils (%) (Auto) 71.0 % (37.0-80.0) Lymphocytes (%) (Auto) 19.4 % (10.0-50.0) Monocytes (%) (Auto) 6.3 % (0.0-12.0) Eosinophils (%) (Auto) 2.3 % (0.0-7.0) Basophils (%) (Auto) 1.0 % (0.0-2.0) Neutrophils # (Auto) 4.3 10 ^3/uL (1.6-8.6) Lymphocytes # (Auto) 1.2 10 ^3/uL (0.4-5.4) Monocytes # (Auto) 0.4 10 ^3/uL (0-1.3) Eosinophils # (Auto) 0.1 10 ^3/uL (0-0.8) Basophils # (Auto) 0.1 10 ^3/uL (0-0.2) Nucleated Red Blood Cells 0.1 % Sodium Level 145 mmol/L (136-145) Potassium Level 3.4 mmol/L (3.5-5.1) Chloride Level 110 mmol/L (98-107) Carbon Dioxide Level 24 mmol/L (20-31) Anion Gap 11 (5-15) Blood Urea Nitrogen 7 mg/dL (9-23) Creatinine 0.65 mg/dL (0.550-1.02) Glomerular Filtration Rate Calc 103 mL/min (>90) BUN/Creatinine Ratio 10.8 (10.0-20.0) Serum Glucose 81 mg/dL (74-106) Calcium Level 8.6 mg/dL (8.7-10.4) Total Bilirubin 0.3 mg/dL (0.2-1.0) Aspartate Amino Transferase (AST) 17 U/L (13-40) Alanine Aminotransferase (ALT) 10 U/L (7-40) Alkaline Phosphatase 80 U/L (46-116) Creatine Kinase 62 U/L (34-145) Total Protein 5.6 g/dL (5.7-8.2) Albumin 3.6 g/dL (3.2-4.8) Urine Color Light-yellow (Yellow) Urine Clarity Clear (Clear) Urine pH 6.0 (5.0-9.0) Urine Specific [place] 1.013 (1.001-1.035) Urine Protein Negative (Negative) Urine Ketones Negative (Negative) Urine Blood Negative /uL (Negative) Urine Nitrite Negative (Negative) Urine Bilirubin Negative (Negative) Urine Urobilinogen Normal mg/dL (Negative) Urine Leukocyte Esterase 1+ /uL (Negative) Urine RBC 2 /hpf (0 - 4) Urine Microscopic WBC 7 /HPF (0-5) Urine Squamous Epithelial Cells Few /hpf (<5) Urine Bacteria None seen /hpf (None Seen) Urine Hyaline Casts Few /lpf (0 - 2) Urine Mucus Few (None Seen) Urine Glucose Normal mg/dL (Normal) Troponin I High Sensitivity < 3 ng/L (</=34) Test 05/24/25 13:47 B-Type Natriuretic Peptide 51.80 pg/mL (0-100) Other Laboratory Tests 05/25/25 06:11 Brief Hx & Hospital Course: History of Present Illness Yoly Mcrae is a 54-year-old female with past medical history of CHF, ex lap for endometriosis, cholecystectomy, hysterectomy, and oophorectomy who presents to the ED with generalized weakness status post fall 4 days ago. Patient reports that she was walking out to her front yd and was over a"lip" when she tripped and fell landed on both her knees and her right hand. Upon examination her right hand has a healed abrasion as well as healing abrasions on her knees. Patient reports now that when she has to stand up or walk she needs assistance with someone holding her up as a cane that she had used before is not sufficient. Patient denies any head strike or loss of consciousness. Patient denies any recent travels, recent sick contacts, recent ingestion of spoiled food, chest pain, shortness of breath, fever, chills, lightheadedness, weakness, dizziness, abdominal pain, nausea vomiting, diarrhea, or urinary symptoms. Course of hospitalization: Patient has CT scan of the head, cervical, and lumbar spine. All essentially negative. Patient was also found to have some lymphadenopathy in the chest, for which CT scan of the chest was performed. Patient does report having home oxygen use, but denies having any cough or phlegm. Patient's initial complaint was weakness in her legs, associated with hypotension found in the emergency room. Patient is now normotensive. She has been ambulating without any difficulty. No respiratory distress is noted. She is requesting to be discharged home. Patient will be prescribed in azithromycin unit Dosepak 1., with instructions to continue all previous home medications and follow up with her PCP in 1-2 weeks. Patient was agreeable with discharge plan. All questions answered. Physical examination General: Alert and Oriented x3. No acute distress. Well-nourished. Eyes: EOMI. Anicteric. HENT: Moist mucous membranes. Lungs: Clear to auscultation bilaterally. No accessory muscle use. Cardiovascular: Regular rate and rhythm. No murmur. No JVD. Abdomen: Soft, non-tender and non-distended. No palpable masses. Extremities: No edema. Non-tender. Skin: No rashes or lesions. Warm. Neurologic: No focal neurological deficits. CN II-XII grossly intact, but not individually tested. Psychiatric: Cooperative. Appropriate mood and affect. Total time spent with patient discussing and formulating plan of care: 35 minutes. This medical document was created using an electronic medical record system with [employer] dictation system. Although this document has been carefully reviewed, there may still be some phonetic and typographical errors. These areas are purely typographical due to imperfections of the software programs, and do not reflect any compromise in the patient's medical care. Condition at Discharge: Fair Final Diagnosis/Problems List Bronchiolitis UTI/cystitis Generalized weakness status post fall Right hand cellulitis Questionable heart failure/pulmonary edema versus pneumonia Obesity Mediastinal lymphadenopathy -chronic pain syndrome Discharge Disposition: Home Discharge Instruct/Medications Diet: Cardiac 2g Na,low cholest Activity: No Restrictions, As Tolerated Follow Up/Referral: Follow up with PCP in 1-2 weeks Medications: Z-Geoffrey unit dose as directed Continue all previous home medications Scheduled Atorvastatin Calcium (Atorvastatin Calcium), 20 MG PO HS, (Reported) Azithromycin (Zithromax Z-Geoffrey), 250 MG PO DAILY Lamotrigine (Lamotrigine), 1 TAB PO DAILY, (Reported) Levomilnacipran Hydrochloride (Fetzima), 1 CAP PO DAILY, (Reported) Metoprolol Tartrate (Lopressor), 1 TAB PO DAILY, (Reported) Mirtazapine (Mirtazapine Oral Disintegrating Tablet), 2 TAB PO HS, (Reported) Morphine Sulfate (Morphine Sulfate Cr), 30 MG PO BID, (Reported) Pantoprazole Sodium Sesquihydr (Pantoprazole Sodium), 1 TAB PO DAILY, (Reported) Pregabalin (Pregabalin), 1 CAP PO TID, (Reported) Tiotropium Brinkley-Olodaterol (Stiolto Respimat 2.5-2.5 Mcg/Act), 2 PUFF INH DAILY, (Reported) Scheduled PRN Furosemide (Furosemide), 1 TAB PO DAILY PRN for edema, (Reported) Morphine Sulfate (Morphine Sulfate), 15 MG PO BID PRN for PAIN, (Reported) Miscellaneous Medications Fremanezumab-Vfrm (Ajovy), SC, (Reported) 39 Discharge Statement: "Patient was advised to return to the ER or call 911 if any headaches, dizziness, shortness of breath, chest pain, abdominal pain, bleeding, fevers, or worsening of medical condition. Patient was counseled about treatment plan, medications, possible side effects, patientverbalized understanding. All questions were answered to the best of my ability. This discharge took greater then 30 minutes in planning, reviewing documentation, counseling the patient, and discussing with other team members." ASSESSMENT ASSESSMENT Assessment Bronchiolitis Date of Service: May 26, 2025 Billing Provider: FRANKLIN MEEK NP Common Visit Codes: 92561-QOD/OBS DISCH DAY >30min FRANKLIN MEEK NP May 26, 2025 12:00
[2025-05-26 14:21] VITALS: BP 149/81; PULSE 84; RESP 18; TEMP 98.6; O2SAT 97
== END 2025-05-26 14:35 | disposition home or self-care (01) | DRG 689 ==
LOC: ER 12:03 → OVERFLOW 16:45 → CENTRAL 21:59
PROVIDERS: ADMIT Nurse Practitioner Acute Care; ATTEND Nurse Practitioner Acute Care
DX: N30.90 Cystitis, unspecified without hematuria (principal); J18.9 Pneumonia, unspecified organism; J21.9 Acute bronchiolitis, unspecified; L03.113 Cellulitis of right upper limb; I95.9 Hypotension, unspecified; I50.9 Heart failure, unspecified; D64.9 Anemia, unspecified; G89.4 Chronic pain syndrome; E66.9 Obesity, unspecified; R59.0 Localized enlarged lymph nodes; Z90.710 Acquired absence of both cervix and uterus; Z68.33 Body mass index [BMI] 33.0-33.9, adult; Z90.49 Acquired absence of other specified parts of digestive tract
CPT/HCPCS: 36415; 70450; 71046; 71260; 72125; 72131; 73130; 80053; 81001; 82550; 83880; 84484; 85025; 85652; 87086; 93005; 96365; 97116; 97163; 97530; G0378; J3490